=== PATIENT | female | born 1935 | race Caucasian/White ===

== ENCOUNTER 2017-07-29 09:47 | Emergency (ER) | payer MEDICARE, OTHER ==
[~2017-07-29] VITALS: Ht 175.3 cm; Wt 72.6 kg
[~2017-07-29 09:47] MED LIST: ALLOPURINOL 10100 M1 PO; AMOXICILLIN; ASPIRIN325 PO; ASPIRIN81 M2 PO; AZITHROMYCIN 2250 MG PO; AZO CRANBERRY250 MG PO; BENADRYL25 MG PO; BUSPIRONE HCL10 MG PO; CALMOSEPTINE OI71 GM TOP; CENTRUM SILVER1 EAC4 PO; CENTRUM SILVER1 EAC6 PO; CIPRO500 MG PO; CLONAZEPAM 1 MG1 M1 PO; COUMADIN 2 MG TA2 M1 PO; DILTIAZEM 24HR180 M2 PO; DULCOLAX5 MG PO; ELIQUIS2.5 MG PO; FLECAINIDE ACET50 M1 PO; HYDROCODON-ACE1 EAC7 PO; KEPPRA 500 MG500 M1 PO; LEVOXYL125 MCG PO; LIDODERM 5%1 PATC1 TRANSDERM; LIPITOR 10 MG10 M1 PO; LOPERAMIDE 2 MG2 M1 PO; LOSARTAN POTASS50 MG PO; MACROBID 100 M100 M2 PO; MAG-AL PLUS SUS30 ML PO; MILK OF MA2400 MG/10 PO; PACERONE 200 M200 M1 PO; PHENERGAN 25 MG25 M1 PO; PLAVIX 75 MG TA75 M1 PO; PREDNISONE 10 M10 MG PO; PROBIOTIC1 EAC1 PO; REQUIP 0.25 M0.25 MG PO; REQUIP 1 MG TABL1 M1 PO; ROPINIROLE HCL0.5 MG PO; RYTHMOL150 MG PO; SLOW-MAG64 M1 PO; SLOW-MAG64 MG PO; TRAMADOL 50 MG50 MG PO; TUMS PO; TYLENOL325 MG PO; VITAMIN D3400 UNIT PO; VITAMINC500 PO; ZADITOR5 M1; ZOFRAN 4 MG ORAL4 MG PO
[2017-07-29] MEDS ORDERED: CARTIA XT120 M1 PO (09:58)
[2017-07-29 12:03] LABS: URINE BILIRUBIN NEGATIVE (Negative); URINE BLOOD NEGATIVE (Negative); URINE CLARITY CLEAR; URINE COLOR YELLOW; URINE GLUCOSE-RANDOM NEGATIVE (Negative); URINE KETONES TRACE (Negative); URINE LEUKOCYTES-REFLEX NEGATIVE (Negative); URINE NITRITE-REFLEX NEGATIVE (Negative); URINE PROTEIN 2+ (Negative); URINE SPECIFIC GRAVITY >= 1.030 (1.005-1.030); URINE UROBILINOGEN 0.2 E.U./dl (0.2-1.0)
[2017-07-29 12:16] LABS: BACTERIA-REFLEX 1-9 Few /HPF (None Seen); SQUAMOUS 4-10 Moderate /LPF (0-3); URINE RBC 3-10 Few /HPF (0-2); URINE WBC-REFLEX 0-5 Rare /HPF (0-5)
[2017-07-29 12:17] LABS: CRYSTALS None Seen /LPF (None Seen); HYALINE CASTS 4-10 Moderate /LPF (None Seen); MUCUS 0-3 Light strn/LPF (None Seen)
[2017-07-29 12:41] VITALS: BP 136/74
[2017-07-30] MEDS ORDERED: NITROFURANTOIN100 MG PO (00:38)
[2017-07-30] MEDS ORDERED: VIT D3 PO (00:46)
[2017-07-30] MEDS ORDERED: ELEMENTAL CALC600 MG PO (00:47)
[2017-07-30] MEDS ORDERED: ASPIRIN325 PO (14:13)
[2017-07-30] MEDS ORDERED: TRAMADOL 50 MG50 MG PO (14:15)
[2017-07-30] MEDS ORDERED: VITAMIN D-40400 UNIT PO (14:16)
[2017-07-30] MEDS ORDERED: LIPITOR 20 MG T20 M1 PO (14:24)
== END 2017-07-29 12:42 | disposition home or self-care (01) ==
LOC: M.ERS 09:47
PROVIDERS: Personal Emergency Response Attendant
DX: M25.562 Pain in left knee (principal); I48.91 Unspecified atrial fibrillation; I10 Essential (primary) hypertension; Z90.710 Acquired absence of both cervix and uterus; Z86.73 Personal history of transient ischemic attack (TIA), and cerebral infarction without residual deficits; Z95.0 Presence of cardiac pacemaker; Z90.5 Acquired absence of kidney; Z88.2 Allergy status to sulfonamides; Z88.8 Allergy status to other drugs, medicaments and biological substances

== ENCOUNTER 2017-07-29 21:05 | Inpatient (IN) | payer MEDICARE, OTHER ==
[~2017-07-29] VITALS: Ht 175.3 cm; Wt 73.1 kg
[~2017-07-29 21:05] MED LIST changes: +CARTIA XT120 M1 PO
[2017-07-29 21:06] VITALS: BP 124/65
[2017-07-29 21:42] LABS: ABSOLUTE EOSINOPHILS 0.2 thou/uL (0.0-0.7); ABSOLUTE MONOCYTES 0.5 thou/uL (0.0-1.2); ABSOLUTE NEUTROPHILS 5.7 thou/uL (1.6-8.1); BASOPHILS 0.6 %; EOSINOPHILS 3.2 %; HEMATOCRIT 37.6 % (37.0-47.0); HEMOGLOBIN 12.8 gm/dL (12.0-15.0); LYMPHOCYTES 13.9 %; MCH 31.3 pg (26.0-34.0); MCHC 33.9 g/dL (28.0-37.0); MCV 92.3 fL (80.0-100.0); MONOCYTES 6.9 %; MPV 8.1 fl. (7.2-11.1); NUCLEATED RBCS 0 /100WBC; PLATELET COUNT* 241 thou/uL (150-400); POLYS 75.4 %; RBC 4.08 mil/uL (4.20-5.00); RDW-CV 15.9 % (10.5-14.5); WBC 7.5 thou/uL (4.0-11.0)
[2017-07-29 21:50] LABS: CALCIUM 8.8 mg/dL (8.5-10.1); CREATININE 0.9 mg/dL (0.6-1.3); POTASSIUM 4.6 mmol/L (3.5-5.1)
[2017-07-29 21:55] LABS: ALBUMIN 3.2 g/dL (3.4-5.0); TOTAL BILIRUBIN 0.4 mg/dL (<0.1-1.0); TOTAL PROTEIN 6.4 g/dL (6.4-8.2)
[2017-07-29 22:57] VITALS: BP 128/66
[2017-07-29 23:00] VITALS: BP 124/59
[2017-07-30] MEDS ORDERED: NITROFURANTOIN100 MG PO (00:38)
[2017-07-30] MEDS ORDERED: VIT D3 PO (00:46)
[2017-07-30] MEDS ORDERED: ELEMENTAL CALC600 MG PO (00:47)
[2017-07-30 07:25] VITALS: BP 132/71
[2017-07-30] MEDS ORDERED: ASPIRIN325 PO (14:13)
[2017-07-30] MEDS ORDERED: TRAMADOL 50 MG50 MG PO (14:15)
[2017-07-30] MEDS ORDERED: VITAMIN D-40400 UNIT PO (14:16)
[2017-07-30] MEDS ORDERED: LIPITOR 20 MG T20 M1 PO (14:24)
[2017-07-30 16:00] VITALS: BP 113/58
[2017-07-30 20:00] VITALS: BP 141/74
[2017-07-31 07:33] VITALS: BP 139/70
[2017-07-31 15:00] VITALS: BP 133/71
[2017-07-31 20:00] VITALS: BP 124/64
[2017-08-01 08:50] VITALS: BP 118/46
[2017-08-01 10:22] VITALS: BP 118/46
[2017-08-01 11:38] VITALS: BP 118/46
[2017-08-01 11:42] VITALS: BP 118/46
[2017-08-01 11:43] VITALS: BP 118/46
[2017-08-01 13:20] VITALS: BP 118/46
== END 2017-08-01 13:15 | disposition home health service (06) | DRG 605 ==
LOC: M.ERS 21:05 → M.TBA-ER 21:58 → M.ORTHSURG 21:58
PROVIDERS: Physician Assistant; ADMIT Internal Medicine
DX: S80.02XA Contusion of left knee, initial encounter (principal); E44.1 Mild protein-calorie malnutrition; I69.954 Hemiplegia and hemiparesis following unspecified cerebrovascular disease affecting left non-dominant side; M17.12 Unilateral primary osteoarthritis, left knee; E78.5 Hyperlipidemia, unspecified; E55.9 Vitamin D deficiency, unspecified; E03.9 Hypothyroidism, unspecified; F32.9 Major depressive disorder, single episode, unspecified; I10 Essential (primary) hypertension; Z90.710 Acquired absence of both cervix and uterus; I48.91 Unspecified atrial fibrillation; Z95.0 Presence of cardiac pacemaker; Z88.6 Allergy status to analgesic agent; Z88.2 Allergy status to sulfonamides; Z88.8 Allergy status to other drugs, medicaments and biological substances; Z79.899 Other long term (current) drug therapy; Z79.82 Long term (current) use of aspirin; Z90.5 Acquired absence of kidney; X58.XXXA Exposure to other specified factors, initial encounter; Y93.89 Activity, other specified; Y92.89 Other specified places as the place of occurrence of the external cause; Y99.8 Other external cause status; Z68.23 Body mass index [BMI] 23.0-23.9, adult

== ENCOUNTER 2018-06-09 16:28 | Inpatient (IN) | payer MEDICARE, OTHER ==
[~2018-06-09] VITALS: Ht 175.3 cm; Wt 74.8 kg
[~2018-06-09 16:28] MED LIST changes: +ELEMENTAL CALC600 MG PO; +LIPITOR 20 MG T20 M1 PO; +NITROFURANTOIN100 MG PO; +VIT D3 PO; +VITAMIN D-40400 UNIT PO
[2018-06-09 16:33] VITALS: BP 154/82
[2018-06-09] MEDS ORDERED: ZOLOFT50 M1 PO (16:49)
[2018-06-09] MEDS ORDERED: SERTRALINE HCL50 MG PO (16:49)
[2018-06-09] MEDS ORDERED: KEFLEX500 M1 PO (16:50)
[2018-06-09] MEDS ORDERED: SENOKOT8.6 MG PO (16:50)
[2018-06-09 16:53] LABS: ABSOLUTE BASOPHILS 0.1 thou/uL (0.0-0.2); ABSOLUTE EOSINOPHILS 0.4 thou/uL (0.0-0.7); ABSOLUTE LYMPHOCYTES 0.9 thou/uL (0.8-5.3); ABSOLUTE MONOCYTES 0.5 thou/uL (0.0-1.2); BASOPHILS 1.2 %; HEMATOCRIT 40.3 % (37.0-47.0); HEMOGLOBIN 13.1 gm/dL (12.0-15.0); LYMPHOCYTES 13.3 %; MCH 28.9 pg (26.0-34.0); MCHC 32.6 g/dL (28.0-37.0); MCV 88.8 fL (80.0-100.0); MONOCYTES 6.9 %; MPV 7.2 fl. (7.2-11.1); NUCLEATED RBCS 0 /100WBC; PLATELET COUNT* 296 thou/uL (150-400); POLYS 72.6 %; RBC 4.54 mil/uL (4.20-5.00); RDW-CV 15.8 % (10.5-14.5); WBC 6.8 thou/uL (4.0-11.0)
[2018-06-09 17:01] LABS: ANION GAP 10 mmol/L (7-16); BUN 15 mg/dL (7-18); CHLORIDE 105 mmol/L (98-107); CO2 28 mmol/L (21-32); CREATININE 0.8 mg/dL (0.6-1.3); GLUCOSE 86 mg/dL (70-99); SODIUM 143 mmol/L (136-145)
[2018-06-09 17:16] LABS: ALKALINE PHOSPHATASE 105 U/L (46-116); LIPASE 99 U/L (73-393); MAGNESIUM 1.8 mg/dL (1.8-2.4); NT-PRO BRAIN NAT PEPTIDE 223 pg/mL (<300); SGOT 51 U/L (15-37); SGPT 75 U/L (30-65); TOTAL BILIRUBIN 0.5 mg/dL (<0.1-1.0); TOTAL PROTEIN 6.7 g/dL (6.4-8.2); TROPONIN-I LEVEL <0.06 ng/mL (<0.06)
[2018-06-09 19:25] VITALS: BP 148/90
[2018-06-09] MEDS ORDERED: SYNTHROID125 MC1 PO (20:16)
[2018-06-09 20:18] VITALS: BP 139/75
[2018-06-10] VITALS: BP 115/64
[2018-06-10 04:00] VITALS: BP 122/63
[2018-06-10 05:38] LABS: ABSOLUTE BASOPHILS 0.1 thou/uL (0.0-0.2); ABSOLUTE EOSINOPHILS 0.4 thou/uL (0.0-0.7); ABSOLUTE LYMPHOCYTES 0.7 thou/uL (0.8-5.3); ABSOLUTE MONOCYTES 0.5 thou/uL (0.0-1.2); ABSOLUTE NEUTROPHILS 4.7 thou/uL (1.6-8.1); BASOPHILS 0.9 %; EOSINOPHILS 6.7 %; HEMATOCRIT 36.8 % (37.0-47.0); HEMOGLOBIN 12.2 gm/dL (12.0-15.0); LYMPHOCYTES 11.2 %; MCH 29.1 pg (26.0-34.0); MCHC 33.1 g/dL (28.0-37.0); MCV 87.8 fL (80.0-100.0); MONOCYTES 7.9 %; MPV 7.8 fl. (7.2-11.1); NUCLEATED RBCS 0 /100WBC; PLATELET COUNT* 267 thou/uL (150-400); POLYS 73.3 %; RBC 4.19 mil/uL (4.20-5.00); RDW-CV 15.7 % (10.5-14.5); WBC 6.4 thou/uL (4.0-11.0)
[2018-06-10 06:10] LABS: ANION GAP 9 mmol/L (7-16); BUN 9 mg/dL (7-18); CALCIUM 8.7 mg/dL (8.5-10.1); CHLORIDE 107 mmol/L (98-107); CO2 28 mmol/L (21-32); CREATININE 0.7 mg/dL (0.6-1.3); GLUCOSE 79 mg/dL (70-99); POTASSIUM 3.6 mmol/L (3.5-5.1); SODIUM 144 mmol/L (136-145); TROPONIN-I LEVEL <0.06 ng/mL (<0.06)
--- NOTE | 2018-06-10 15:27 | EKG ---
[place] [address] ELECTROCARDIOGRAM REPORT Name: EDUARDO LINDSEY Room: [address] ADM IN .R.#: [id number] Admission: 06/09/18 Attend Phys: Osman Gaitan MD Discharge: Date of : 35 Report #: [id number] THIS REPORT FOR: //name// [facility] ED Test Date: 2018-06-09 Test Time: 16:33:02 Pat Name: EDUARDO LINDSEY Department: Room: [facility] Gender: F Cloud Systems Architect: Kim LUKE : 1935 Requested By: Tone Jacobs Order Number: [id number] MD: Gallito Clark Measurements Intervals [place] Rate: 79 P: [place]: 191 QRS: 24 QRSD: 110 T: -21 QT: 395 QTc: 453 Interpretive Statements Atrial-paced complexes Low voltage, extremity leads Compared to ECG 02/10/2017 07:36:23 Prolonged QT interval no longer present Electronically Signed On 06-10-2018 15:26:47 CEMENT TRUCK DRIVER by Gallito Clark [email or web address] <ELECTRONICALLY SIGNED> By: Gallito Clark MD, FACC 06/10/18 1526 1633 1633 Gallito Clark MD, [facility] /EPI
[2018-06-10 16:00] VITALS: BP 116/62
[2018-06-10 20:00] VITALS: BP 104/55
[2018-06-11] VITALS: BP 115/58
[2018-06-11 04:00] VITALS: BP 124/71
[2018-06-11 08:00] VITALS: BP 124/71
[2018-06-11 12:00] VITALS: BP 96/60
[2018-06-11 16:00] VITALS: BP 133/81
[2018-06-11 20:00] VITALS: BP 134/65
[2018-06-12] VITALS: BP 137/69
[2018-06-12 04:00] VITALS: BP 142/72
[2018-06-12 08:00] VITALS: BP 136/76
[2018-06-12 10:24] VITALS: BP 136/76
[2018-06-12 11:34] VITALS: BP 116/54
--- NOTE | 2018-06-12 16:36 | CON ---
[address] [address] CONSULTATION Name: EDUARDO LINDSEY Room: [address] IN .R.#: [id number] Admission: 06/09/18 Attend Phys: Osman Gaitan MD Discharge: Date of : 35 Report #: [id number] THIS REPORT FOR: //name// CC: Osman Browne DO INDICATION: Chest pain. HISTORY OF PRESENT ILLNESS: The patient is a very pleasant 83-year-old white female who is admitted to the hospital with left-sided chest discomfort that is persistent since yesterday. The patient states the pain is reproducible with palpation and with movement and deep breath. The patient's cardiac enzymes are unremarkable. EKG does not show any acute ST or T-wave abnormality. She remains in sinus rhythm. She does have a history of paroxysmal atrial fibrillation and has sick sinus syndrome, status post permanent pacemaker placement. She is without other cardiac complaint at this time. PAST MEDICAL HISTORY: 1. Paroxysmal atrial fibrillation. 2. Sick sinus syndrome. 3. CVA x 3. 4. Status post permanent pacemaker placement. 5. Hypertension. 6. Dyslipidemia. 7. Hypothyroidism. CURRENT MEDICATIONS: Allopurinol 100 mg daily, amiodarone 200 mg b.i.d., vitamin C 500 mg daily, aspirin 325 mg daily, atorvastatin 20 mg at bedtime, elemental calcium 600 mg b.i.d., vitamin D3 at 400 units daily, cranberry extract b.i.d., diltiazem XL 120 mg daily, Keppra 500 mg 2 tablets b.i.d., Synthroid 125 mcg daily, losartan 50 mg at bedtime, magnesium chloride 64 mg daily, Centrum Silver for Women 1 tablet daily, Senokot 1 tablet b.i.d., sertraline 50 mg daily. ALLERGIES: SULFA, IBUPROFEN, XARELTO, ELIQUIS. REVIEW OF SYSTEMS: A 14-point review of systems is positive for generalized weakness, cough, pneumonia, palpitations, chest discomfort, hypothyroidism, recent urinary tract infections, anemia, medical allergies outlined above and she wears glasses without acute visual change. Otherwise, 14-point review of systems is unremarkable. PHYSICAL EXAMINATION: VITAL SIGNS: Stable. Blood pressure 122/63, pulse 74 and regular. GENERAL: This is a pleasant elderly female, in no [place] [address] CONSULTATION Name: EDUARDO LINDSEY Room: [address]#: [id number] Admission: 06/09/18 Attend Phys: Osman Gaitan MD Discharge: Date of : 35 Report #: [id number]. HEENT: Extraocular muscles intact. Mucous membranes are moist. Slight right facial droop. NECK: Shows no jugular venous distention. There are no carotid bruits. CHEST: Reveals clear lung lanier. I do not appreciate wheezes or rales. CARDIAC: Reveals a regular rhythm with normal S1 and S2. ABDOMEN: Reveals normal bowel sounds. The abdomen is soft and nontender. EXTREMITIES: Shows no edema. Peripheral pulses palpable. ASSESSMENT AND PLAN: 1. Atypical chest pain, noncardiac in origin. Would not pursue further workup at this time. 2. Sick sinus syndrome, status post dual chamber pacemaker placement. Pacemaker functioning normally by outside interrogation. Continue followup as scheduled. 3. Paroxysmal atrial fibrillation. The patient is not anticoagulated apparently due to fall risk. She remains on amiodarone for rhythm control. 4. Hypertension, adequately controlled on current cardiac regimen. 5. Hyperlipidemia. Continue atorvastatin at current dose. At this point in time, the patient appears stable from a cardiac standpoint. We will follow up as needed. <ELECTRONICALLY SIGNED> By: Gallito Clark MD, FACC 06/12/18 1636 1026 1225Gallito Clark MD, FACC /nt
[2018-06-12] MEDS ORDERED: AUGMENTIN 875-1 EACH PO (16:50)
[2018-06-12 16:54] VITALS: BP 136/76
== END 2018-06-12 18:09 | disposition home health service (06) | DRG 178 ==
LOC: M.ERS 16:28 → M.2W 18:38 → M.TBA-ER 18:38 → M.2W 18:38
PROVIDERS: Emergency Medicine Emergency Medical Services; ADMIT Internal Medicine
DX: J15.6 Pneumonia due to other Gram-negative bacteria (principal); E44.1 Mild protein-calorie malnutrition; I69.354 Hemiplegia and hemiparesis following cerebral infarction affecting left non-dominant side; R07.81 Pleurodynia; I48.0 Paroxysmal atrial fibrillation; I49.5 Sick sinus syndrome; I10 Essential (primary) hypertension; E78.5 Hyperlipidemia, unspecified; E03.9 Hypothyroidism, unspecified; K21.9 Gastro-esophageal reflux disease without esophagitis; Z91.81 History of falling; Z90.5 Acquired absence of kidney; Z95.0 Presence of cardiac pacemaker; Z68.24 Body mass index [BMI] 24.0-24.9, adult; Z90.710 Acquired absence of both cervix and uterus; Z79.82 Long term (current) use of aspirin; Z79.899 Other long term (current) drug therapy; Z88.2 Allergy status to sulfonamides; Z88.8 Allergy status to other drugs, medicaments and biological substances

== ENCOUNTER 2018-06-20 13:46 | Emergency (ER) | payer MEDICARE, OTHER ==
[~2018-06-20] VITALS: Ht 175.3 cm; Wt 73.9 kg
[2018-06-20] MEDS ORDERED: REQUIP 1 MG TABL1 M1 PO (14:02)
[2018-06-20 16:23] VITALS: BP 136/75
== END 2018-06-20 16:23 | disposition home or self-care (01) ==
LOC: M.ERS 13:46
DX: S20.211A Contusion of right front wall of thorax, initial encounter (principal); S70.01XA Contusion of right hip, initial encounter; S80.01XA Contusion of right knee, initial encounter; S40.011A Contusion of right shoulder, initial encounter; S09.8XXA Other specified injuries of head, initial encounter; I10 Essential (primary) hypertension; I48.91 Unspecified atrial fibrillation; Z86.73 Personal history of transient ischemic attack (TIA), and cerebral infarction without residual deficits; Z90.710 Acquired absence of both cervix and uterus; Z88.2 Allergy status to sulfonamides; Z88.6 Allergy status to analgesic agent; Z88.8 Allergy status to other drugs, medicaments and biological substances; V48.4XXA Person boarding or alighting a car injured in noncollision transport accident, initial encounter; Y93.89 Activity, other specified; Y92.59 Other trade areas as the place of occurrence of the external cause; Y99.8 Other external cause status

== ENCOUNTER → 2018-06-20 | Outpatient (CLI) | payer MEDICARE, OTHER ==
[~2018-06-20] MED LIST changes: +AUGMENTIN 875-1 EACH PO; +KEFLEX500 M1 PO; +SENOKOT8.6 MG PO; +SERTRALINE HCL50 MG PO; +SYNTHROID125 MC1 PO; +ZOLOFT50 M1 PO
== END ==
LOC: M.MRI 08:19
DX: S82.142A Displaced bicondylar fracture of left tibia, initial encounter for closed fracture (principal); M76.892 Other specified enthesopathies of left lower limb, excluding foot; M25.462 Effusion, left knee; X58.XXXA Exposure to other specified factors, initial encounter; Y93.89 Activity, other specified; Y92.89 Other specified places as the place of occurrence of the external cause; Y99.8 Other external cause status

== ENCOUNTER 2018-06-29 08:50 | Inpatient (IN) | payer MEDICARE, OTHER ==
[~2018-06-29] VITALS: Ht 162.6 cm; Wt 74.4 kg
[2018-06-29 08:56] VITALS: BP 138/70
[2018-06-29 09:38] LABS: HEMOGLOBIN 12.1 gm/dL (12.0-15.0); MCH 28.7 pg (26.0-34.0); MCHC 32.8 g/dL (28.0-37.0); MCV 87.4 fL (80.0-100.0); MPV 7.4 fl. (7.2-11.1); NUCLEATED RBCS 0 /100WBC; PLATELET COUNT* 349 thou/uL (150-400); RBC 4.24 mil/uL (4.20-5.00); RDW-CV 15.7 % (10.5-14.5); WBC 7.1 thou/uL (4.0-11.0)
[2018-06-29 09:47] LABS: APTT 30.9 Seconds (25.0-31.3); PROTIME 10.7 Seconds (9.20-11.50)
[2018-06-29 09:56] LABS: ANION GAP 11 mmol/L (7-16); BUN 15 mg/dL (7-18); CALCIUM 8.6 mg/dL (8.5-10.1); CHLORIDE 105 mmol/L (98-107); CO2 27 mmol/L (21-32); CREATININE 0.9 mg/dL (0.6-1.3); GLUCOSE 102 mg/dL (70-99); POTASSIUM 3.5 mmol/L (3.5-5.1); SODIUM 143 mmol/L (136-145)
[2018-06-29 10:04] LABS: ALBUMIN 2.5 g/dL (3.4-5.0); ALKALINE PHOSPHATASE 91 U/L (46-116); CK-MB MASS 0.6 ng/mL (<0.5-3.6); LIPASE 89 U/L (73-393); MAGNESIUM 1.6 mg/dL (1.8-2.4); NT-PRO BRAIN NAT PEPTIDE 203 pg/mL (<300); SGOT 30 U/L (15-37); SGPT 59 U/L (30-65); TOTAL BILIRUBIN 0.3 mg/dL (<0.1-1.0); TOTAL PROTEIN 6.2 g/dL (6.4-8.2); TROPONIN-I LEVEL <0.06 ng/mL (<0.06)
[2018-06-29 10:16] LABS: ABSOLUTE EOSINOPHILS 0.4 thou/uL (0.0-0.7); ABSOLUTE LYMPHOCYTES 0.7 thou/uL (0.8-5.3); ABSOLUTE MONOCYTES 0.4 thou/uL (0.0-1.2); ABSOLUTE NEUTROPHILS 5.6 thou/uL (1.6-8.1)
[2018-06-29 10:17] LABS: PLATELET ESTIMATE ADEQUATE
[2018-06-29 10:18] LABS: ANISOCYTOSIS 1+; OVALOCYTES 1+
[2018-06-29 14:17] VITALS: BP 119/57
[2018-06-29 14:50] VITALS: BP 119/57
[2018-06-29 15:30] VITALS: BP 112/62
[2018-06-29 20:00] VITALS: BP 125/58
[2018-06-30] VITALS: BP 118/64
[2018-06-30 04:00] VITALS: BP 143/67
[2018-06-30 08:00] VITALS: BP 132/73
--- NOTE | 2018-06-30 11:08 | EKG ---
[place] [address] ELECTROCARDIOGRAM REPORT Name: EDUARDO LINDSEY Room: [address] ADM IN M.R.#: [id number] Admission: 06/29/18 Attend Phys: Vicente Baum, Discharge: Date of : 35 Report #: [id number] THIS REPORT FOR: //name// [facility] ED Test Date: 2018-06-29 Test Time: 08:58:38 Pat Name: EDUARDO LINDSEY Department: Room: [facility] Gender: F Food Service Ambassador: Lilli OLIVERA : 1935 Requested By: Kevin Freeman Order Number: [id number] MD: Jean Carlos Aquino Measurements Intervals [place] Rate: 82 P: [place]: 156 QRS: 3 QRSD: 110 T: 0 QT: 464 QTc: 542 Interpretive Statements Atrial-paced complexes Low voltage, extremity leads Abnormal R-wave progression, late transition Prolonged QT interval Compared to ECG 06/09/2018 16:33:02 Prolonged QT interval now present Electronically Signed On 06-30-2018 11:08:23 HAND SHAKER by Jean Carlos Aquino [email or web address] <ELECTRONICALLY SIGNED> By: Jean Carlos Aquino MD, FACC 06/30/18 1108 0858 0858 Jean Carlos Aquino MD, FACC /EPI
[2018-06-30 12:00] VITALS: BP 121/55
[2018-06-30 15:55] VITALS: BP 142/83
[2018-06-30 20:10] VITALS: BP 129/63
[2018-07-01 00:05] VITALS: BP 132/68
[2018-07-01 03:49] LABS: HEMATOCRIT 34.8 % (37.0-47.0); HEMOGLOBIN 11.5 gm/dL (12.0-15.0); MCHC 32.9 g/dL (28.0-37.0); MPV 7.8 fl. (7.2-11.1); RBC 3.96 mil/uL (4.20-5.00); RDW-CV 15.7 % (10.5-14.5); WBC 6.4 thou/uL (4.0-11.0)
[2018-07-01 04:00] VITALS: BP 134/69
[2018-07-01 04:07] LABS: ALBUMIN 2.3 g/dL (3.4-5.0); CALCIUM 8.4 mg/dL (8.5-10.1); CREATININE 0.9 mg/dL (0.6-1.3); MAGNESIUM 1.8 mg/dL (1.8-2.4); POTASSIUM 3.9 mmol/L (3.5-5.1); TOTAL BILIRUBIN 0.3 mg/dL (<0.1-1.0); TOTAL PROTEIN 5.6 g/dL (6.4-8.2)
[2018-07-01 07:50] VITALS: BP 143/70
[2018-07-01 12:00] VITALS: BP 126/67
[2018-07-01 15:37] VITALS: BP 123/66
[2018-07-01 20:00] VITALS: BP 145/63
[2018-07-02 03:57] LABS: HEMATOCRIT 33.1 % (37.0-47.0); HEMOGLOBIN 11.1 gm/dL (12.0-15.0); MCH 29.4 pg (26.0-34.0); MCHC 33.6 g/dL (28.0-37.0); MCV 87.6 fL (80.0-100.0); MPV 7.7 fl. (7.2-11.1); RBC 3.78 mil/uL (4.20-5.00); RDW-CV 15.4 % (10.5-14.5); WBC 6.4 thou/uL (4.0-11.0)
[2018-07-02 04:00] VITALS: BP 135/70
[2018-07-02 04:08] LABS: ALBUMIN 2.2 g/dL (3.4-5.0); CALCIUM 7.8 mg/dL (8.5-10.1); CREATININE 0.8 mg/dL (0.6-1.3); MAGNESIUM 1.7 mg/dL (1.8-2.4); POTASSIUM 3.6 mmol/L (3.5-5.1); TOTAL BILIRUBIN 0.3 mg/dL (<0.1-1.0); TOTAL PROTEIN 5.4 g/dL (6.4-8.2)
[2018-07-02 08:00] VITALS: BP 153/68
[2018-07-02 12:04] VITALS: BP 145/65
--- NOTE | 2018-07-02 15:32 | 2DMMODE ---
[place] [address] 2 D/M-MODE ECHOCARDIOGRAM Name: ROSALIAEDUARDOBRYAN MARTINO Room: [address] ADM IN .R.#: [id number] Admission: 06/29/18 Attend Phys: Vicente Robert Discharge: Date of : 35 Date of Service: 07/02/18 1531 Report #: [id number] THIS REPORT FOR: //name// APPROVED REPORT Study performed: 07/02/2018 10:14:43 EXAM: Comprehensive 2D, Doppler, and color-flow Echocardiogram Patient Location: In-Patient BSA: 1.80 HR: 80 bpm BP: 153/68 mmHg Rhythm: NSR Other Information Study Quality: Good Indications Congestive Heart Failure 2D Dimensions IVSd: 10.88 (7-11mm) LVOT Diam: 20.91 (18-24mm) LVDd: 45.37 mm PWd: 8.96 (7-11mm) LVDs: 29.34 (25-40mm) Aortic Root: 27.85 mm Volumes Left Atrial Volume (Systole) LA ESV Index: 36.70 mL/m2 Aortic Valve AoV Peak Pierce.: 1.38 m/s AO Peak Gr.: 7.56 mmHg LVOT Max P.92 mmHg AO Mean Gr.: 4.00 mmHg LVOT Mean P.83 mmHg LVOT Max V: 0.99 m/s AO V2 VTI: 26.63 cm LVOT Mean V: 0.61 m/s BLUE (VTI): 2.68 cm2 LVOT V1 VTI: 20.82 cm Mitral Valve E/A Ratio: 0.58 MV Decel. Time: 197.67 ms MV E Max Pierce.: 0.48 m/s MV PHT: 57.32 [place] [address] 2 D/M-MODE ECHOCARDIOGRAM Name: EDUARDO LINDSEY Room: [address] IN [facility]#: [id number] Admission: 06/29/18 Attend Phys: Vicente Robert Discharge: Date of : 35 Date of Service: 07/02/18 1531 Report #: [id number] MVA (PHT): 3.84 cm2 TDI E/Lateral E': 5.33 E/Medial E': 8.00 Medial E' Pierce.: 0.06 m/s Lateral E' Pierce.: 0.09 m/s Pulmonary Valve PV Peak Pierce.: 1.01 m/s PV Peak Gr.: 4.12 mmHg Tricuspid Valve RAP Estimate: 5.00 mmHg TR Peak Gr.: 24.14 mmHg RVSP: 29.00 mmHg PA Pressure: 29.00 mmHg Left Ventricle The left ventricle is normal size. There is normal LV segmental wall motion. There is normal left ventricular wall thickness. Left ventricular systolic function is normal. LVEF is 60-65%. Grade I - abnormal relaxation pattern. Right Ventricle The right ventricle is normal size. The right ventricular systolic function is normal. Pacemaker lead is present in the right ventricle. Atria Left atrium is mildly dilated. Right atrium is mildly dilated. Aortic Valve The aortic valve is normal in structure. No aortic regurgitation is present. There is no aortic valvular stenosis. Mitral Valve The mitral valve is normal in structure. Trace mitral regurgitation. No evidence of mitral valve stenosis. Tricuspid Valve The tricuspid valve is normal in structure. Mild tricuspid regurgitation. No pulmonary hypertension. Pulmonic Valve The pulmonary valve is normal in structure. Trace pulmonic regurgitation[place] [address] 2 D/M-MODE ECHOCARDIOGRAM Name: EDUARDO LINDSEY Room: [address] IN [facility]#: [id number] Admission: 06/29/18 Attend Phys: Vicente Robert Discharge: Date of : 35 Date of Service: 07/02/18 1531 Report #: [id number] The aortic root is normal in size. IVC is normal in size and collapses >50% with inspiration. Pericardium There is no pericardial effusion. Left pleural effusion. <Conclusion> The left ventricle is normal size. There is normal left ventricular wall thickness. Left ventricular systolic function is normal. LVEF is 60-65%. Grade I - abnormal relaxation pattern. Left atrium is mildly dilated. Right atrium is mildly dilated. Pacemaker lead is present in the right ventricle. Trace mitral regurgitation. Mild tricuspid regurgitation. No pulmonary hypertension. IVC is normal in size and collapses >50% with inspiration. Left pleural effusion. <ELECTRONICALLY SIGNED> By: Gallito Clark MD, FACC 07/02/18 153 30 30 Gallito Clark MD, FACC /INF
[2018-07-02 16:00] VITALS: BP 136/66
[2018-07-02 21:00] VITALS: BP 138/59
[2018-07-02 23:29] VITALS: BP 144/76
[2018-07-03 03:15] VITALS: BP 135/66
[2018-07-03 04:36] LABS: HEMATOCRIT 34.7 % (37.0-47.0); HEMOGLOBIN 11.7 gm/dL (12.0-15.0); MCH 29.3 pg (26.0-34.0); MCHC 33.8 g/dL (28.0-37.0); MCV 86.7 fL (80.0-100.0); MPV 7.6 fl. (7.2-11.1); RBC 4.01 mil/uL (4.20-5.00); RDW-CV 15.6 % (10.5-14.5); WBC 6.6 thou/uL (4.0-11.0)
[2018-07-03 04:48] LABS: ALBUMIN 2.3 g/dL (3.4-5.0); CALCIUM 8.7 mg/dL (8.5-10.1); CREATININE 0.9 mg/dL (0.6-1.3); MAGNESIUM 1.9 mg/dL (1.8-2.4); POTASSIUM 3.7 mmol/L (3.5-5.1); TOTAL BILIRUBIN 0.3 mg/dL (<0.1-1.0); TOTAL PROTEIN 5.8 g/dL (6.4-8.2)
[2018-07-03 07:40] VITALS: BP 147/72
[2018-07-03 12:00] VITALS: BP 115/53
[2018-07-03 16:20] VITALS: BP 123/61
[2018-07-03 23:40] VITALS: BP 119/60
[2018-07-04 03:32] VITALS: BP 147/99
[2018-07-04 08:40] VITALS: BP 147/73
[2018-07-04] MEDS ORDERED: DOXYCYCLINE 10100 MG PO (10:19)
[2018-07-04] MEDS ORDERED: SPIRONOLACTONE25 MG PO (10:19)
[2018-07-04] MEDS ORDERED: CEFDINIR300 MG PO (10:19)
[2018-07-04 10:26] VITALS: BP 147/73
[2018-07-04 12:16] VITALS: BP 137/72
[2018-07-04 16:45] VITALS: BP 124/60
[2018-07-04 20:30] VITALS: BP 119/58
[2018-07-05] VITALS: BP 124/55
[2018-07-05 04:25] VITALS: BP 143/66
[2018-07-05 09:00] VITALS: BP 137/72
[2018-07-05 09:40] VITALS: BP 137/72
== END 2018-07-05 11:15 | DRG 177 ==
LOC: M.ERS 08:50 → M.TBA-ER 10:17 → M.3W 10:17
PROVIDERS: Family Medicine; Internal Medicine; ADMIT Family Medicine
DX: J15.6 Pneumonia due to other Gram-negative bacteria (principal); J96.01 Acute respiratory failure with hypoxia; I50.30 Unspecified diastolic (congestive) heart failure; I69.354 Hemiplegia and hemiparesis following cerebral infarction affecting left non-dominant side; I11.0 Hypertensive heart disease with heart failure; I48.91 Unspecified atrial fibrillation; E03.9 Hypothyroidism, unspecified; E78.5 Hyperlipidemia, unspecified; R13.10 Dysphagia, unspecified; Z90.710 Acquired absence of both cervix and uterus; Z95.0 Presence of cardiac pacemaker; Z88.2 Allergy status to sulfonamides; Z88.6 Allergy status to analgesic agent; Z88.8 Allergy status to other drugs, medicaments and biological substances; Z79.899 Other long term (current) drug therapy

== ENCOUNTER → 2018-09-18 | Outpatient (CLI) | payer MEDICARE, OTHER ==
[~2018-09-18] MED LIST changes: +CEFDINIR300 MG PO; +DOXYCYCLINE 10100 MG PO; +SPIRONOLACTONE25 MG PO; +VITAMIN D35000 UNI1 PO; +ZYLOPRIM300 MG PO
== END ==
LOC: M.CT 08:35
DX: J84.10 Pulmonary fibrosis, unspecified (principal); J98.4 Other disorders of lung

== ENCOUNTER → 2018-10-02 | Outpatient (CLI) | payer MEDICARE, OTHER ==
[2018-10-02 12:28] LABS: HEMATOCRIT 42.2 % (37.0-47.0); MCHC 33.2 g/dL (28.0-37.0); MCV 90.5 fL (80.0-100.0); MPV 7.9 fl. (7.2-11.1); NUCLEATED RBCS 0 /100WBC; PLATELET COUNT* 289 thou/uL (150-400); RBC 4.66 mil/uL (4.20-5.00); RDW-CV 17.5 % (10.5-14.5)
[2018-10-02 12:43] LABS: ALBUMIN 3.4 g/dL (3.4-5.0); CALCIUM 8.8 mg/dL (8.5-10.1); CREATININE 1.2 mg/dL (0.6-1.3); POTASSIUM 4.6 mmol/L (3.5-5.1); TOTAL BILIRUBIN 0.3 mg/dL (<0.1-1.0); TOTAL PROTEIN 6.7 g/dL (6.4-8.2)
[2018-10-02 13:00] LABS: ABSOLUTE EOSINOPHILS 0.2 thou/uL (0.0-0.7); ABSOLUTE LYMPHOCYTES 0.7 thou/uL (0.8-5.3); ABSOLUTE NEUTROPHILS 9.1 thou/uL (1.6-8.1); ANISOCYTOSIS 1+; PLATELET ESTIMATE ADEQUATE
[2018-10-02 19:07] LABS: IgA 89 mg/dL (64-422); IgG 748 mg/dL (700-1600); IgM 43 mg/dL (26-217)
== END ==
LOC: M.MRI 09-22 11:59 → M.LAB 11:41 → M.MRI 13:30
PROVIDERS: Psychiatry & Neurology Neuromuscular Medicine
DX: I63.012 Cerebral infarction due to thrombosis of left vertebral artery (principal); M54.17 Radiculopathy, lumbosacral region; R26.9 Unspecified abnormalities of gait and mobility; M62.81 Muscle weakness (generalized)

== ENCOUNTER → 2018-10-03 | Outpatient (CLI) | payer MEDICARE, OTHER | LOC: M.CT 10-02 15:08 | DX: M47.27 Other spondylosis with radiculopathy, lumbosacral region (principal); M47.815 Spondylosis without myelopathy or radiculopathy, thoracolumbar region; M41.86 Other forms of scoliosis, lumbar region; M43.16 Spondylolisthesis, lumbar region; I63.012 Cerebral infarction due to thrombosis of left vertebral artery; N20.0 Calculus of kidney ==

== ENCOUNTER → 2018-10-07 | Day surgery (SDC) | payer MEDICARE, OTHER ==
--- NOTE | ~2018-10-07 | PROC ---
[address] [place] [address] PROCEDURE REPORT Name: Jazmin LINDSEY Room: [facility]#: [id number] Admission: 10/07/18 Attend Phys: Moisés Ayala DO Discharge: Date of : 35 Report #: [id number] THIS REPORT FOR: //name// For GI report, please see the Provation report in Perceptive 7 content. By: 0637Medical Records Staff [facility] /JUVENTINO
[2018-10-07 11:02] LABS: HEMATOCRIT 40.8 % (37.0-47.0); HEMOGLOBIN 13.4 gm/dL (12.0-15.0); MCH 29.8 pg (26.0-34.0); MCHC 32.9 g/dL (28.0-37.0); MCV 90.5 fL (80.0-100.0); MPV 7.9 fl. (7.2-11.1); RBC 4.51 mil/uL (4.20-5.00)
[2018-10-07 11:13] LABS: CALCIUM 9.1 mg/dL (8.5-10.1)
[2018-10-07 11:35] LABS: POTASSIUM 4.1 mmol/L (3.5-5.1)
--- NOTE | 2018-10-09 15:06 | PATH ---
[address] [address] PATHOLOGY RPT PROCEDURE Name: Jazmin LINDSEY Room: [facility]#: [id number] Admission: 10/07/18 Date of : 35 Discharge: Report #: [id number] Path Case #: [id number] [facility] Accession Number: [id number] . 01 Material submitted: . ESOPHAGEAL BIOPSY FOR DYSPHAGIA . 01 Clinical history: . Dysphagia, esophageal stricture . 02 Diagnosis: Esophageal biopsy: - Mild chronic esophagitis, typical of reflux. . (DAVID:mml; 10/09/2018) [facility]/10/09/2018 . 02 Electronically signed: . Emgidio Traylor MD, Pathologist NPI- [id number] . 01 Gross description: . Received in formalin labeled "Candace Lindsey, esophageal biopsy for dysphagia," are three segments of ziegler-brown soft tissue ranging from 0.3 x 0.2 x 0.1 cm to 0.4 x 0.2 x 0.1 cm in greatest dimensions. The specimen is submitted entirely in cassette A1. ([facility]; 10/08/2018) XDC/XDC . 02 Pathologist provided ICD-10: K20.9 . 02 CPT . 896931 Specimen Comment: A courtesy copy of this report has been sent to Specimen Comment: [phone], . Specimen Comment: Report sent to / DR MEDINA Performed at: [address], [place], [place] [id number] MD Dm Beth MD Phone: [phone] Performed at: [address] [facility] [address] [facility] , [place], [place] [id number] MD Emigdio Traylor MD Phone: [phone]
== END | disposition home or self-care (01) ==
LOC: M.SUR
PROVIDERS: Internal Medicine Gastroenterology
DX: K29.50 Unspecified chronic gastritis without bleeding (principal); K21.9 Gastro-esophageal reflux disease without esophagitis; K22.2 Esophageal obstruction; K44.9 Diaphragmatic hernia without obstruction or gangrene

== ENCOUNTER → 2018-11-04 | Outpatient (CLI) | payer MEDICARE, OTHER ==
[2018-11-04 10:54] LABS: HEMATOCRIT 39.8 % (37.0-47.0); HEMOGLOBIN 13.2 gm/dL (12.0-15.0); MCHC 33.2 g/dL (28.0-37.0); MCV 90.4 fL (80.0-100.0); MPV 7.6 fl. (7.2-11.1); NUCLEATED RBCS 0 /100WBC; PLATELET COUNT* 276 thou/uL (150-400); RBC 4.41 mil/uL (4.20-5.00)
[2018-11-04 11:15] LABS: ABSOLUTE EOSINOPHILS 0.8 thou/uL (0.0-0.7); ABSOLUTE LYMPHOCYTES 0.7 thou/uL (0.8-5.3); ABSOLUTE MONOCYTES 0.4 thou/uL (0.0-1.2); ABSOLUTE NEUTROPHILS 6.1 thou/uL (1.6-8.1); PLATELET ESTIMATE ADEQUATE
[2018-11-04 11:16] LABS: MACROCYTES Occasional
[2018-11-04 11:17] LABS: CALCIUM 9.3 mg/dL (8.5-10.1); CREATININE 1.3 mg/dL (0.6-1.3); POTASSIUM 4.2 mmol/L (3.5-5.1); TOTAL BILIRUBIN 0.2 mg/dL (<0.1-1.0); TOTAL PROTEIN 6.7 g/dL (6.4-8.2)
--- NOTE | 2018-11-05 12:53 | HEMONC ---
[address] [address] HEMATOLOGY ONCOLOGY NOTE Name: EDUARDO LINDSEY Room: [facility].#: [id number] Admission: 11/04/18 Attend Phys: Wesly Gamez MD Discharge: Date of : 35 Report #: [id number] THIS REPORT FOR: //name// CC: Wesly Browne DATE OF SERVICE: 11/04/2018 REFERRING PHYSICIAN: Dr. Rainey. REASON FOR CONSULTATION: Abnormal immunofixation IgG light chain. SUBJECTIVE: An 83-year-old female who is being evaluated because of abnormal immunofixation IgG kappa. The patient reported that she has been having generalized symptoms of fatigue. She has been having also chronic pain at her knees due to osteoarthritis, requiring steroid injection. Otherwise, the patient does not have any frequent infections. Her fatigue has been chronic. I reviewed her most recent CBC, which was done last month, which showed normal hemoglobin, normal platelets. She had also normal creatinine and calcium. REVIEW OF SYSTEMS: All systems were reviewed. It was negative except the above. PAST MEDICAL HISTORY: Coronary artery disease, sick sinus syndrome, status post pacemaker, CVA, depression, hypertension, dyslipidemia, hypothyroidism, gout, AFib. MEDICATIONS: Allopurinol 300 mg p.o. daily, amiodarone 200 mg p.o. daily, atorvastatin 20 mg p.o. daily, Cartia XT 120 mg daily, Keppra 500 mg p.o. daily, levothyroxine 100 mcg p.o. daily, losartan 50 mg p.o. daily, montelukast 10 mg p.o. daily, ReQuip 1 mg p.o. daily, sertraline 50 mg p.o. daily, Aldactone 25 mg p.o. daily, aspirin 325 mg p.o. daily. FAMILY HISTORY: Father with Hodgkin lymphoma. SOCIAL HISTORY: No smoking. She drinks alcohol occasionally. ALLERGIES: No known allergies. PHYSICAL EXAMINATION: VITAL SIGNS: Today, blood pressure is 92/56, pulse is 81, respirations 18, sat is 95% on room air, temperature is 97.9. GENERAL: The patient was sitting in chair, was not in acute distress. LUNGS: Clear to auscultation bilaterally. HEART: Regular rate and rhythm. S1, S2 within normal limits. ABDOMEN: Soft, nontender, nondistended. [place] [address] HEMATOLOGY ONCOLOGY NOTE Name: EDUARDO LINDSEY Room: [facility]#: [id number] Admission: 11/04/18 Attend Phys: Wesly Gamez MD Discharge: Date of : 35 Report #: [id number] EXTREMITIES: No edema, no cyanosis, no clubbing. LABORATORY DATA: Most recent labs on 10/07/2018, WBC 8.0, hemoglobin 13.4, platelets 230. Creatinine is 1.0, calcium is 9.1. ASSESSMENT AND PLAN: An 83-year-old female who is being evaluated because of abnormal immunofixation IgG kappa light chain. The patient does not have any evidence of anemia or thrombocytopenia. Her calcium and creatinine are within normal range. RECOMMENDATION: I would like to obtain serum electrophoresis with a free light chain. 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 At this point, we will complete the work-up by obtaining a skeletal survey. Recommendations will be based on these labs, but most likely the patient will be on observation at this point. <ELECTRONICALLY SIGNED> By: Wesly Gamez MD 11/05/18 1253 1030 2248Wesly Gamez MD /nt
[2018-11-05 14:06] LABS: KAPPA FREE LIGHT CHAINS 27.4 mg/L (3.3-19.4); LAMBDA FREE LIGHT CHAINS 14.7 mg/L (5.7-26.3)
== END ==
LOC: M.RAD 04:58 → M.RTH 04:58
PROVIDERS: Internal Medicine
DX: D47.2 Monoclonal gammopathy (principal); M17.0 Bilateral primary osteoarthritis of knee; G89.29 Other chronic pain; M50.83 Other cervical disc disorders, cervicothoracic region; M47.816 Spondylosis without myelopathy or radiculopathy, lumbar region; M41.86 Other forms of scoliosis, lumbar region; I25.10 Atherosclerotic heart disease of native coronary artery without angina pectoris; I49.5 Sick sinus syndrome; F32.9 Major depressive disorder, single episode, unspecified; I10 Essential (primary) hypertension; E78.5 Hyperlipidemia, unspecified; E03.9 Hypothyroidism, unspecified; M10.9 Gout, unspecified; I48.91 Unspecified atrial fibrillation; Z95.0 Presence of cardiac pacemaker; Z86.73 Personal history of transient ischemic attack (TIA), and cerebral infarction without residual deficits; Z79.899 Other long term (current) drug therapy; Z79.82 Long term (current) use of aspirin

== ENCOUNTER 2018-11-17 08:48 | Emergency (ER) | payer MEDICARE, OTHER ==
[~2018-11-17] VITALS: Ht 175.3 cm; Wt 72.0 kg
[2018-11-17] MEDS ORDERED: SPIRONOLACTONE25 M1 PO (09:04)
[2018-11-17] MEDS ORDERED: REQUIP 1 MG TABL1 M1 PO (09:04)
[2018-11-17 09:24] LABS: HEMATOCRIT 39.5 % (37.0-47.0); HEMOGLOBIN 13.4 gm/dL (12.0-15.0); MCH 30.6 pg (26.0-34.0); MCHC 33.9 g/dL (28.0-37.0); MCV 90.1 fL (80.0-100.0); MPV 8.1 fl. (7.2-11.1); NUCLEATED RBCS 0 /100WBC; PLATELET COUNT* 245 thou/uL (150-400); RBC 4.38 mil/uL (4.20-5.00); RDW-CV 16.5 % (10.5-14.5); WBC 8.2 thou/uL (4.0-11.0)
[2018-11-17 09:30] LABS: ANION GAP 8 mmol/L (7-16); BUN 15 mg/dL (7-18); CALCIUM 8.8 mg/dL (8.5-10.1); CHLORIDE 107 mmol/L (98-107); CO2 28 mmol/L (21-32); CREATININE 0.8 mg/dL (0.6-1.3); GLUCOSE 101 mg/dL (70-99); POTASSIUM 3.9 mmol/L (3.5-5.1); SODIUM 143 mmol/L (136-145)
[2018-11-17 09:43] LABS: ALBUMIN 2.9 g/dL (3.4-5.0); ALKALINE PHOSPHATASE 95 U/L (46-116); LIPASE 84 U/L (73-393); SGOT 84 U/L (15-37); SGPT 144 U/L (30-65); TOTAL BILIRUBIN 0.4 mg/dL (<0.1-1.0); TOTAL PROTEIN 6.3 g/dL (6.4-8.2); TROPONIN-I LEVEL <0.06 ng/mL (<0.06)
[2018-11-17 09:47] LABS: URINE BILIRUBIN NEGATIVE (Negative); URINE BLOOD 2+ (Negative); URINE CLARITY CLEAR; URINE COLOR YELLOW; URINE GLUCOSE-RANDOM NEGATIVE (Negative); URINE KETONES NEGATIVE (Negative); URINE PROTEIN 1+ (Negative); URINE SPECIFIC GRAVITY 1.025 (1.005-1.030); URINE UROBILINOGEN 0.2 E.U./dl (0.2-1.0)
[2018-11-17 09:54] LABS: URINE LEUKOCYTES-REFLEX 2+ (Negative); URINE NITRITE-REFLEX POSITIVE (Negative)
[2018-11-17 10:03] LABS: BACTERIA-REFLEX >30 Many /HPF (None Seen); CASTS None Seen /LPF (None Seen); MUCUS None Seen strn/LPF (None Seen); SQUAMOUS 0-3 Few /LPF (0-3); URINE RBC 3-10 Few /HPF (0-2)
[2018-11-17 10:04] LABS: CRYSTALS None Seen /LPF (None Seen); URINE WBC-REFLEX >25 Many /HPF (0-5)
[2018-11-17 10:51] LABS: ABSOLUTE EOSINOPHILS 0.9 thou/uL (0.0-0.7); ABSOLUTE MONOCYTES 0.7 thou/uL (0.0-1.2); ABSOLUTE NEUTROPHILS 5.7 thou/uL (1.6-8.1); ATYPICAL LYMPHS 1 %; PLATELET ESTIMATE ADEQUATE
[2018-11-17 10:53] LABS: LARGE PLATELETS RARE
[2018-11-17 10:55] LABS: BURR CELLS 1+; MICROCYTES 1+
[2018-11-17 10:57] LABS: ANISOCYTOSIS 1+
[2018-11-17] MEDS ORDERED: MACROBID 100 M100 M1 PO (11:46)
[2018-11-17 12:04] VITALS: BP 124/72
--- NOTE | 2018-11-17 15:27 | EKG ---
[place] [address] ELECTROCARDIOGRAM REPORT Name: EDUARDO LINDSEY Room: [facility]#: [id number] Admission: 11/17/18 Attend Phys: Discharge: 11/17/18 Date of : 35 Report #: [id number] THIS REPORT FOR: //name// [facility] ED Test Date: 2018-11-17 Test Time: 09:43:45 Pat Name: EDUARDO LINDSEY Department: Room: Gender: F Underground Utility Locator: : 1935 Requested By: Curly Bell Order Number: [id number] MD: Ruddy Wolf Measurements Intervals [place] Rate: 72 P: [place]: 185 QRS: -2 QRSD: 97 T: 18 QT: 534 QTc: 585 Interpretive Statements sinus rhythm Low voltage, extremity and precordial leads Prolonged QT interval Compared to ECG 06/29/2018 08:58:38 No significant changes Electronically Signed On 11-17-2018 15:27:32 CDT by Ruddy Wolf [email or web address] <ELECTRONICALLY SIGNED> By: Ruddy Wolf MD, [facility] 11/17/18 1527 0943 Ruddy Wolf MD, [facility] /EPI
== END 2018-11-17 12:05 | disposition home or self-care (01) ==
LOC: M.ERS 08:48
PROVIDERS: Emergency Medicine
DX: N39.0 Urinary tract infection, site not specified (principal); I10 Essential (primary) hypertension; I48.91 Unspecified atrial fibrillation; Z88.2 Allergy status to sulfonamides; Z90.710 Acquired absence of both cervix and uterus; Z88.6 Allergy status to analgesic agent; Z88.8 Allergy status to other drugs, medicaments and biological substances; Z86.73 Personal history of transient ischemic attack (TIA), and cerebral infarction without residual deficits

== ENCOUNTER → 2018-11-28 | Outpatient (CLI) | payer MEDICARE, OTHER ==
[~2018-11-28] MED LIST changes: +MACROBID 100 M100 M1 PO; +SPIRONOLACTONE25 M1 PO
[2018-11-28 10:37] LABS: CALCIUM 8.8 mg/dL (8.5-10.1); CREATININE 0.8 mg/dL (0.6-1.3); POTASSIUM 3.8 mmol/L (3.5-5.1)
== END ==
LOC: M.LAB 09:56 → M.CT 11:00
DX: J84.10 Pulmonary fibrosis, unspecified (principal); J90 Pleural effusion, not elsewhere classified; J98.11 Atelectasis; R91.8 Other nonspecific abnormal finding of lung field; Z95.0 Presence of cardiac pacemaker

== ENCOUNTER 2019-06-06 10:40 | Emergency (ER) | payer MEDICARE, OTHER ==
[~2019-06-06] VITALS: Ht 175.3 cm; Wt 69.0 kg
[~2019-06-06 10:40] MED LIST changes: +ACIDOPHILUS1 EAC4 PO; +CIPRO250 M1 PO; +SYNTHROID100 MC1 PO
[2019-06-06] MEDS ORDERED: LOSARTAN POTASS50 MG PO (10:54)
[2019-06-06] MEDS ORDERED: ULTIMATE FLORA PO (10:57)
[2019-06-06] MEDS ORDERED: SENEXON-S 50-81 EACH PO (10:58)
[2019-06-06] MEDS ORDERED: STOOL SOFTENER100 MG PO (10:58)
[2019-06-06 12:06] LABS: ABSOLUTE BASOPHILS 0.1 thou/uL (0.0-0.2); ABSOLUTE EOSINOPHILS 0.3 thou/uL (0.0-0.7); ABSOLUTE LYMPHOCYTES 0.8 thou/uL (0.8-5.3); ABSOLUTE MONOCYTES 0.7 thou/uL (0.0-1.2); ABSOLUTE NEUTROPHILS 6.4 thou/uL (1.6-8.1); BASOPHILS 1.1 %; EOSINOPHILS 3.9 %; HEMATOCRIT 35.9 % (37.0-47.0); LYMPHOCYTES 9.5 %; MCH 28.9 pg (26.0-34.0); MCHC 33.4 g/dL (28.0-37.0); MCV 86.6 fL (80.0-100.0); MPV 7.4 fl. (7.2-11.1); NUCLEATED RBCS 0 /100WBC; PLATELET COUNT* 423 thou/uL (150-400); POLYS 77.5 %; RBC 4.15 mil/uL (4.20-5.00); RDW-CV 15.4 % (10.5-14.5); WBC 8.2 thou/uL (4.0-11.0)
[2019-06-06 12:15] LABS: CALCIUM 8.2 mg/dL (8.5-10.1); CREATININE 0.9 mg/dL (0.6-1.3); POTASSIUM 3.8 mmol/L (3.5-5.1)
[2019-06-06 12:20] LABS: ALBUMIN 2.3 g/dL (3.4-5.0); TOTAL BILIRUBIN 0.3 mg/dL (<0.1-1.0); TOTAL PROTEIN 5.3 g/dL (6.4-8.2)
[2019-06-06 12:44] LABS: URINE BILIRUBIN NEGATIVE (Negative); URINE BLOOD 2+ (Negative); URINE CLARITY CLEAR; URINE COLOR YELLOW; URINE GLUCOSE-RANDOM NEGATIVE (Negative); URINE KETONES TRACE (Negative); URINE LEUKOCYTES-REFLEX TRACE (Negative); URINE PROTEIN 2+ (Negative)
[2019-06-06 12:46] LABS: URINE NITRITE-REFLEX POSITIVE (Negative)
[2019-06-06 12:56] LABS: SQUAMOUS 0-3 Few /LPF (0-3); URINE WBC-REFLEX 6-15 Few /HPF (0-5)
[2019-06-06 12:57] LABS: BACTERIA-REFLEX >30 Many /HPF (None Seen); CASTS None Seen /LPF (None Seen); CRYSTALS None Seen /LPF (None Seen); MUCUS 0-3 Light strn/LPF (None Seen); URINE RBC 3-10 Few /HPF (0-2)
[2019-06-06] MEDS ORDERED: AUGMENTIN 875-1 EACH PO ×2 (13:34)
[2019-06-06 13:55] VITALS: BP 127/64
== END 2019-06-06 13:56 | disposition home or self-care (01) ==
LOC: M.ERS 10:40
PROVIDERS: Nurse Practitioner Family
DX: K62.3 Rectal prolapse (principal); N20.0 Calculus of kidney; N39.0 Urinary tract infection, site not specified; I48.91 Unspecified atrial fibrillation; I10 Essential (primary) hypertension; Z86.73 Personal history of transient ischemic attack (TIA), and cerebral infarction without residual deficits; Z90.710 Acquired absence of both cervix and uterus; Z88.2 Allergy status to sulfonamides; Z88.1 Allergy status to other antibiotic agents; Z88.6 Allergy status to analgesic agent

== ENCOUNTER 2019-06-13 07:26 | Emergency (ER) | payer MEDICARE, OTHER ==
[~2019-06-13] VITALS: Ht 175.3 cm; Wt 68.5 kg
[~2019-06-13 07:26] MED LIST changes: +SENEXON-S 50-81 EACH PO; +STOOL SOFTENER100 MG PO; +ULTIMATE FLORA PO
[2019-06-13 08:43] LABS: ABSOLUTE BASOPHILS 0.1 thou/uL (0.0-0.2); ABSOLUTE EOSINOPHILS 0.3 thou/uL (0.0-0.7); ABSOLUTE LYMPHOCYTES 0.9 thou/uL (0.8-5.3); ABSOLUTE MONOCYTES 0.7 thou/uL (0.0-1.2); ABSOLUTE NEUTROPHILS 8.1 thou/uL (1.6-8.1); BASOPHILS 0.6 %; EOSINOPHILS 2.5 %; HEMATOCRIT 38.2 % (37.0-47.0); HEMOGLOBIN 12.7 gm/dL (12.0-15.0); LYMPHOCYTES 8.7 %; MCH 28.7 pg (26.0-34.0); MCHC 33.3 g/dL (28.0-37.0); MCV 86.4 fL (80.0-100.0); MPV 7.2 fl. (7.2-11.1); NUCLEATED RBCS 0 /100WBC; PLATELET COUNT* 428 thou/uL (150-400); POLYS 81.2 %; RBC 4.42 mil/uL (4.20-5.00); RDW-CV 15.7 % (10.5-14.5)
[2019-06-13 08:54] LABS: CREATININE 0.8 mg/dL (0.6-1.3); POTASSIUM 3.6 mmol/L (3.5-5.1)
[2019-06-13 08:58] LABS: ALBUMIN 2.3 g/dL (3.4-5.0); TOTAL BILIRUBIN 0.4 mg/dL (<0.1-1.0); TOTAL PROTEIN 5.5 g/dL (6.4-8.2)
[2019-06-13 10:07] LABS: URINE BILIRUBIN NEGATIVE (Negative); URINE BLOOD 1+ (Negative); URINE CLARITY CLEAR; URINE COLOR YELLOW; URINE GLUCOSE-RANDOM NEGATIVE (Negative); URINE KETONES NEGATIVE (Negative); URINE LEUKOCYTES-REFLEX TRACE (Negative); URINE NITRITE-REFLEX NEGATIVE (Negative); URINE PROTEIN 2+ (Negative); URINE SPECIFIC GRAVITY 1.025 (1.005-1.030); URINE UROBILINOGEN 0.2 E.U./dl (0.2-1.0)
[2019-06-13] MEDS ORDERED: MACROBID 100 M100 M1 PO (10:30)
[2019-06-13 10:37] LABS: CRYSTALS None Seen /LPF (None Seen); HYALINE CASTS 0-3 Few /LPF (None Seen); MUCUS 0-3 Light strn/LPF (None Seen); SQUAMOUS 0-3 Few /LPF (0-3); WBC CLUMPS Few (None Seen)
[2019-06-13 10:38] LABS: BACTERIA-REFLEX 1-9 Few /HPF (None Seen); URINE RBC 0-2 Rare /HPF (0-2); URINE WBC-REFLEX 0-5 Rare /HPF (0-5); YEAST-REFLEX Present (None Seen)
[2019-06-13 10:52] VITALS: BP 125/62
--- NOTE | 2019-06-16 10:40 | EKG ---
[place] [address] ELECTROCARDIOGRAM REPORT Name: Jazmin LINDSEY [facility] [id number] Admission: 06/13/19 Attend Phys: Discharge: 06/13/19 Date of : 35 Report #: [id number] THIS REPORT FOR: //name// [facility] ED Test Date: 2019-06-13 Test Time: 08:15:29 Pat Name: Jazmin LINDSEY Department: Room: Gender: F Coagulating Bath Operator: [place]UB[place] : 1935 Requested By: Curly Bell Order Number: [id number] MD: Gallito Clark Measurements Intervals [place] Rate: 71 P: [place]: 167 QRS: 36 QRSD: 124 T: -22 QT: 499 QTc: 543 Interpretive Statements Atrial-paced complexes Nonspecific intraventricular conduction delay Borderline abnrm T, anterolateral leads Compared to ECG 01/07/2019 12:24:12 Intraventricular conduction delay now present Sinus rhythm no longer present Myocardial infarct finding no longer present Prolonged QT interval no longer present Electronically Signed On 06-16-2019 10:39:51 COKE CRUSHER OPERATOR by Gallito Clark [email or web address] <ELECTRONICALLY SIGNED> By: Gallito Clark MD, FACC 06/16/19 1039 4 4 Gallito Clark MD, FAC /EPI
== END 2019-06-13 11:12 | disposition home or self-care (01) ==
LOC: M.ERS 07:26
PROVIDERS: Emergency Medicine
DX: N39.0 Urinary tract infection, site not specified (principal); K59.00 Constipation, unspecified; R42 Dizziness and giddiness; K62.3 Rectal prolapse; I10 Essential (primary) hypertension; R55 Syncope and collapse; I48.91 Unspecified atrial fibrillation; Z90.710 Acquired absence of both cervix and uterus; Z88.2 Allergy status to sulfonamides; Z88.1 Allergy status to other antibiotic agents; Z88.6 Allergy status to analgesic agent; Z79.82 Long term (current) use of aspirin

== ENCOUNTER 2019-07-17 14:36 | Emergency (ER) | payer MEDICARE, OTHER ==
[~2019-07-17] VITALS: Ht 175.3 cm; Wt 69.0 kg
--- NOTE | ~2019-07-17 | EKG ---
[place] [address] ELECTROCARDIOGRAM REPORT Name: Jazmin LINDSEY [id number] Admission: 07/17/19 Attend Phys: Discharge: 07/17/19 Date of : 35 Report #: [id number] THIS REPORT FOR: //name// [facility] ED Test Date: 2019-07-17 Test Time: 14:47:44 Pat Name: Jazmin LINDSEY Department: Room: Gender: F Export Sales Assistant: MAXIMILIAN : 1935 Requested By: Jesi Proctor Order Number: [id number] Reading MD: Measurements Intervals [place] Rate: 77 P: [place]: 166 QRS: 22 QRSD: 96 T: -23 QT: 437 QTc: 495 Interpretive Statements Atrial-paced complexes Inferior infarct, age indeterminate Anterior infarct, old No previous ECG available for comparison [email or web address] By: 1447 1447 Epiphany EpiphMD angie /ALANA
[2019-07-17] MEDS ORDERED: MIRALAX119 GM PO (14:50)
[2019-07-17] MEDS ORDERED: LEVAQUIN 750 M750 MG PO (14:50)
[2019-07-17] MEDS ORDERED: MELATONIN3 M1 PO (14:51)
[2019-07-17 16:05] LABS: HEMATOCRIT 36.2 % (37.0-47.0); HEMOGLOBIN 11.9 gm/dL (12.0-15.0); MCH 27.8 pg (26.0-34.0); MCHC 32.8 g/dL (28.0-37.0); MCV 84.6 fL (80.0-100.0); NUCLEATED RBCS 0 /100WBC; PLATELET COUNT* 466 thou/uL (150-400); RBC 4.27 mil/uL (4.20-5.00); RDW-CV 15.8 % (10.5-14.5); WBC 11.8 thou/uL (4.0-11.0)
[2019-07-17 16:16] LABS: CREATININE 1.9 mg/dL (0.6-1.3); POTASSIUM 4.4 mmol/L (3.5-5.1)
[2019-07-17 16:19] LABS: ABSOLUTE EOSINOPHILS 0.1 thou/uL (0.0-0.7); ABSOLUTE LYMPHOCYTES 0.8 thou/uL (0.8-5.3); ABSOLUTE MONOCYTES 0.8 thou/uL (0.0-1.2); PLATELET ESTIMATE ADEQUATE
[2019-07-17 16:21] LABS: ALBUMIN 2.3 g/dL (3.4-5.0); TOTAL BILIRUBIN 0.3 mg/dL (<0.1-1.0)
[2019-07-17 17:52] VITALS: BP 113/55
--- NOTE | 2019-07-20 15:03 | EKG ---
[place] [address] ELECTROCARDIOGRAM REPORT Name: RUBYKRYSTALJazmin GUNNER [id number] Admission: 07/17/19 Attend Phys: Discharge: 07/17/19 Date of : 35 Report #: [id number] THIS REPORT FOR: //name// [facility] ED Test Date: 2019-07-17 Test Time: 14:47:44 Pat Name: Jazmin LINDSEY Department: Room: Gender: F Supervisor Fur Dressing: MAXIMILIAN : 1935 Requested By: Jesi Proctor Order Number: [id number] MD: Ruddy Wolf Measurements Intervals [place] Rate: 77 P: [place]: 166 QRS: 22 QRSD: 96 T: -23 QT: 437 QTc: 495 Interpretive Statements sinus rhythm low voltage artifact noted Inferior infarct, age indeterminate Anterior infarct, old Compared to ECG 06/13/2019 08:15:29 no change Electronically Signed On 07-20-2019 15:03:02 IRON MINER BLASTING by Ruddy Wolf [email or web address] <ELECTRONICALLY SIGNED> By: Ruddy Wolf MD, [facility] 07/20/19 1503 1447 1447 Ruddy Wolf MD, [facility] /EPI
== END 2019-07-17 17:53 | disposition home or self-care (01) ==
LOC: M.ERS 14:36
PROVIDERS: Personal Emergency Response Attendant
DX: R51 Headache (principal); I48.91 Unspecified atrial fibrillation; I11.0 Hypertensive heart disease with heart failure; I50.9 Heart failure, unspecified; E78.00 Pure hypercholesterolemia, unspecified; Z88.2 Allergy status to sulfonamides; Z88.6 Allergy status to analgesic agent; Z88.8 Allergy status to other drugs, medicaments and biological substances; Z90.710 Acquired absence of both cervix and uterus

== ENCOUNTER 2019-07-23 14:43 | Emergency (ER) | payer MEDICARE, OTHER ==
[~2019-07-23] VITALS: Ht 175.3 cm; Wt 69.0 kg
[~2019-07-23 14:43] MED LIST changes: +LEVAQUIN 750 M750 MG PO; +MELATONIN3 M1 PO; +MIRALAX119 GM PO
[2019-07-23] MEDS ORDERED: VOLTAREN GEL 1100 G1 TOP (15:03)
[2019-07-23 15:14] LABS: HEMATOCRIT 38.6 % (37.0-47.0); HEMOGLOBIN 12.7 gm/dL (12.0-15.0); MCH 27.6 pg (26.0-34.0); MCHC 32.8 g/dL (28.0-37.0); MCV 84.2 fL (80.0-100.0); MPV 7.5 fl. (7.2-11.1); NUCLEATED RBCS 0 /100WBC; PLATELET COUNT* 459 thou/uL (150-400); RBC 4.59 mil/uL (4.20-5.00); RDW-CV 16.5 % (10.5-14.5); WBC 11.3 thou/uL (4.0-11.0)
[2019-07-23 15:24] LABS: CALCIUM 8.1 mg/dL (8.5-10.1); CREATININE 1.2 mg/dL (0.6-1.3); POTASSIUM 3.1 mmol/L (3.5-5.1)
[2019-07-23 15:29] LABS: ALBUMIN 2.3 g/dL (3.4-5.0); TOTAL BILIRUBIN 0.5 mg/dL (<0.1-1.0); TOTAL PROTEIN 5.7 g/dL (6.4-8.2)
[2019-07-23 15:31] LABS: URINE BLOOD 3+ (Negative); URINE CLARITY CLOUDY; URINE COLOR YELLOW; URINE GLUCOSE-RANDOM NEGATIVE (Negative); URINE KETONES NEGATIVE (Negative); URINE LEUKOCYTES-REFLEX 1+ (Negative); URINE PROTEIN 2+ (Negative); URINE SPECIFIC GRAVITY 1.025 (1.005-1.030); URINE UROBILINOGEN 0.2 E.U./dl (0.2-1.0)
[2019-07-23 15:33] LABS: URINE BILIRUBIN 1+ (Negative); URINE NITRITE-REFLEX POSITIVE (Negative)
[2019-07-23 15:35] LABS: ICTOTEST (BILI CONFIRMATORY) Negative (Negative)
[2019-07-23 15:37] LABS: BACTERIA-REFLEX >30 Many /HPF (None Seen); CALCIUM OXALATE 0-3 Few /LPF (None Seen); CASTS None Seen /LPF (None Seen); SQUAMOUS 0-3 Few /LPF (0-3); URINE RBC 3-10 Few /HPF (0-2); URINE WBC-REFLEX >25 Many /HPF (0-5); WBC CLUMPS Many (None Seen)
[2019-07-23 15:43] LABS: ABSOLUTE MONOCYTES 0.2 thou/uL (0.0-1.2); ABSOLUTE NEUTROPHILS 10.1 thou/uL (1.6-8.1); PLATELET ESTIMATE INCREASED
[2019-07-23 15:44] LABS: GIANT PLATELETS OCCASIONAL
[2019-07-23] MEDS ORDERED: ZOFRAN ODT4 MG DISSOLVE ×2 (17:07→17:38)
[2019-07-23] MEDS ORDERED: DOXYCYCLINE 10100 M2 PO (17:07)
[2019-07-23] MEDS ORDERED: KEFLEX250 MG/5 M PO (17:38)
[2019-07-23 18:40] VITALS: BP 113/42
--- NOTE | 2019-07-24 11:06 | EKG ---
[place] [address] ELECTROCARDIOGRAM REPORT Name: ROSALIAJazmin MARTINO Room: [facility].#: [id number] Admission: 07/23/19 Attend Phys: Discharge: 07/23/19 Date of : 35 Report #: [id number] THIS REPORT FOR: //name// [facility] ED Test Date: 2019-07-23 Test Time: 15:11:50 Pat Name: Jazmin LINDSEY Department: Room: Gender: F Hot Mill Operator: : 1935 Requested By: Tone Jacobs Order Number: [id number] MD: Ruddy Wolf Measurements Intervals [place] Rate: 80 P: MD: 132 QRS: -47 QRSD: 157 T: -83 QT: 461 QTc: 532 Interpretive Statements normal sinus rhythm low voltage artifact noted Nonspecific IVCD with LAD Borderline abnrm T, anterolateral leads Compared to ECG 07/17/2019 14:47:44 no change Electronically Signed On 07-24-2019 11:05:58 ACCOUNTS OFFICER by Ruddy Wolf [email or web address] <ELECTRONICALLY SIGNED> By: Ruddy Wolf MD, [facility] 07/24/19 1105 10 10 Ruddy Wolf MD, [facility] /EPI
[2019-07-24] MEDS ORDERED: LOPERAMIDE2 MG PO (23:05)
[2019-07-24] MEDS ORDERED: TYLENOL325 MG PO (23:05)
[2019-07-24] MEDS ORDERED: IPRAT-ALBUT 0.5-3 ML INH (23:06)
[2019-07-24] MEDS ORDERED: MUCINEX600 MG PO (23:06)
[2019-07-24] MEDS ORDERED: BUDESONIDE0.25 MG/2 INH (23:07)
== END 2019-07-23 18:41 | disposition home or self-care (01) ==
LOC: M.ERS 14:43
PROVIDERS: Emergency Medicine Emergency Medical Services
DX: J18.9 Pneumonia, unspecified organism (principal); N39.0 Urinary tract infection, site not specified; I48.91 Unspecified atrial fibrillation; I10 Essential (primary) hypertension; E03.9 Hypothyroidism, unspecified; Z88.2 Allergy status to sulfonamides; Z88.6 Allergy status to analgesic agent; Z88.1 Allergy status to other antibiotic agents; Z88.8 Allergy status to other drugs, medicaments and biological substances; Z90.710 Acquired absence of both cervix and uterus

== ENCOUNTER 2019-07-24 22:57 | Inpatient (IN) | payer MEDICARE, OTHER ==
[~2019-07-24] VITALS: Ht 175.3 cm; Wt 67.6 kg
[~2019-07-24 22:57] MED LIST changes: +DOXYCYCLINE 10100 M2 PO; +KEFLEX250 MG/5 M PO; +VOLTAREN GEL 1100 G1 TOP; +ZOFRAN ODT4 MG DISSOLVE
[2019-07-24 23:01] VITALS: BP 110/72
[2019-07-24] MEDS ORDERED: LOPERAMIDE2 MG PO (23:05)
[2019-07-24] MEDS ORDERED: TYLENOL325 MG PO (23:05)
[2019-07-24] MEDS ORDERED: IPRAT-ALBUT 0.5-3 ML INH (23:06)
[2019-07-24] MEDS ORDERED: MUCINEX600 MG PO (23:06)
[2019-07-24] MEDS ORDERED: BUDESONIDE0.25 MG/2 INH (23:07)
[2019-07-24 23:20] LABS: ABSOLUTE LYMPHOCYTES 0.5 thou/uL (0.8-5.3); ABSOLUTE MONOCYTES 0.8 thou/uL (0.0-1.2); ABSOLUTE NEUTROPHILS 12.9 thou/uL (1.6-8.1); BASOPHILS 0.1 %; HEMATOCRIT 35.9 % (37.0-47.0); HEMOGLOBIN 11.9 gm/dL (12.0-15.0); LYMPHOCYTES 3.5 %; MCV 84.6 fL (80.0-100.0); MONOCYTES 5.9 %; MPV 7.3 fl. (7.2-11.1); NUCLEATED RBCS 0 /100WBC; PLATELET COUNT* 403 thou/uL (150-400); POLYS 90.5 %; RBC 4.24 mil/uL (4.20-5.00); RDW-CV 16.5 % (10.5-14.5); WBC 14.3 thou/uL (4.0-11.0)
[2019-07-24 23:32] LABS: INR 1.1; PROTIME 11.4 Seconds (9.20-11.50)
[2019-07-24 23:50] LABS: CALCIUM 8.1 mg/dL (8.5-10.1); CREATININE 1.3 mg/dL (0.6-1.3)
[2019-07-24 23:53] LABS: POTASSIUM 2.6 mmol/L (3.5-5.1)
[2019-07-25] VITALS (10 sets, daily range): BP systolic 53–101; BP diastolic 28–46
[2019-07-25 00:01] LABS: ALBUMIN 2.1 g/dL (3.4-5.0); TOTAL BILIRUBIN 0.3 mg/dL (<0.1-1.0); TOTAL PROTEIN 5.5 g/dL (6.4-8.2)
[2019-07-25 02:27] LABS: URINE BILIRUBIN NEGATIVE (Negative); URINE BLOOD 2+ (Negative); URINE CLARITY CLEAR; URINE COLOR YELLOW; URINE GLUCOSE-RANDOM NEGATIVE (Negative); URINE KETONES TRACE (Negative); URINE LEUKOCYTES-REFLEX TRACE (Negative); URINE PROTEIN 2+ (Negative); URINE SPECIFIC GRAVITY 1.025 (1.005-1.030); URINE UROBILINOGEN 0.2 E.U./dl (0.2-1.0)
[2019-07-25 02:28] LABS: URINE NITRITE-REFLEX POSITIVE (Negative)
[2019-07-25 02:33] LABS: BACTERIA-REFLEX >30 Many /HPF (None Seen); CASTS None Seen /LPF (None Seen); CRYSTALS None Seen /LPF (None Seen); MUCUS 4-6 Moderate strn/LPF (None Seen); SQUAMOUS 0-3 Few /LPF (0-3); URINE WBC-REFLEX >25 Many /HPF (0-5); WBC CLUMPS Few (None Seen)
[2019-07-25 05:20] LABS: CREATININE 1.3 mg/dL (0.6-1.3)
[2019-07-25 06:05] LABS: POTASSIUM 2.9 mmol/L (3.5-5.1)
--- NOTE | 2019-07-26 10:33 | EKG ---
[place] [address] ELECTROCARDIOGRAM REPORT Name: RUBYKRYSTALJazmin GUNNER Room: [address] IN M.R.#: [id number] Admission: 07/25/19 Attend Phys: Hallie Uriostegui Discharge: 07/25/19 Date of : 35 Report #: [id number] THIS REPORT FOR: //name// [facility] ED Test Date: 2019-07-24 Test Time: 23:04:04 Pat Name: Jazmin LINDSEY Department: Room: [facility] Gender: F Photolettering Machine Operator: [place] : 1935 Requested By: Odalis Baker Order Number: [id number] MD: Rupesh Arnold Measurements Intervals [place] Rate: 69 P: 77 [place]: 166 QRS: 33 QRSD: 125 T: 221 QT: 526 QTc: 564 Interpretive Statements Sinus rhythm Nonspecific intraventricular conduction delay Anteroseptal infarct, age indeterminate Compared to ECG 07/23/2019 15:11:50 Myocardial infarct finding now present Electronically Signed On 07-26-2019 10:32:34 CAT AND DOG BATHER by Rupesh Arnold [email or web address] <ELECTRONICALLY SIGNED> By: Kory Arnold MD, [facility] 07/26/19 1032 2304 2304 Kory Arnold MD, [facility] /EPI
== END 2019-07-25 19:00 | DRG 871 ==
LOC: M.ERS 22:57 → M.TBA-ER 07-25 00:36 → M.ICU 07-25 10:35
PROVIDERS: Emergency Medicine; ADMIT Family Medicine
DX: A41.9 Sepsis, unspecified organism (principal); J69.0 Pneumonitis due to inhalation of food and vomit; J96.01 Acute respiratory failure with hypoxia; R65.21 Severe sepsis with septic shock; K55.9 Vascular disorder of intestine, unspecified; E87.0 Hyperosmolality and hypernatremia; E44.0 Moderate protein-calorie malnutrition; I69.359 Hemiplegia and hemiparesis following cerebral infarction affecting unspecified side; F03.90 Unspecified dementia, unspecified severity, without behavioral disturbance, psychotic disturbance, mood disturbance, and anxiety; K22.2 Esophageal obstruction; E86.0 Dehydration; N18.3 Chronic kidney disease, stage 3 (moderate); E87.6 Hypokalemia; R74.0 Nonspecific elevation of levels of transaminase and lactic acid dehydrogenase [LDH]; I12.9 Hypertensive chronic kidney disease with stage 1 through stage 4 chronic kidney disease, or unspecified chronic kidney disease; Z66 Do not resuscitate; Z51.5 Encounter for palliative care; I48.91 Unspecified atrial fibrillation; E03.9 Hypothyroidism, unspecified; Z90.5 Acquired absence of kidney; Z95.0 Presence of cardiac pacemaker; Z79.899 Other long term (current) drug therapy; Z79.82 Long term (current) use of aspirin; Z88.1 Allergy status to other antibiotic agents; Z88.8 Allergy status to other drugs, medicaments and biological substances; Z90.710 Acquired absence of both cervix and uterus; Z68.22 Body mass index [BMI] 22.0-22.9, adult; Z88.2 Allergy status to sulfonamides